=== PATIENT | male | born 1940 | race Asian ===

== ENCOUNTER 2017-06-25 07:14 | Inpatient (IN) | payer MEDICARE ==
[~2017-06-25] VITALS: Ht 170.2 cm; Wt 78.0 kg
[~2017-06-25 07:14] MED LIST: ATEN25TA PO; METF-444 PO; PRAV20TA4 PO
[2017-06-25 07:27] LABS: GLUCOSE,POINT OF CARE 304 MG/DL (70-110)
[2017-06-25 07:51] LABS: BASOPHILS % (AUTO) 1.1 % (0.0-2.0); EOSINOPHILS % (AUTO) 0.5 % (1.0-6.0); HEMATOCRIT 38.5 % (41-53); HEMOGLOBIN 12.9 g/dL (13.5-17.5); LYMPHOCYTES # (AUTO) 0.5 K/uL (1.0-4.8); LYMPHOCYTES % (AUTO) 4.8 % (22.0-44.0); MEAN CORPUSCULAR HEMOGLOBIN 30.8 pg (26.0-34.0); MEAN CORPUSCULAR HGB CONC 33.5 G/dL (31.0-37.0); MEAN CORPUSCULAR VOLUME 92 fL (80-100); MONOCYTES # (AUTO) 0.8 K/uL (0.1-1.0); MONOCYTES % (AUTO) 7.5 % (2.0-9.0); NEUTROPHILS # (AUTO) 9.1 K/uL (1.8-7.7); NEUTROPHILS % (AUTO) 86.1 % (40.0-70.0); PLATELET COUNT (AUTO) 209 K/uL (150-450); RED BLOOD CELL COUNT(AUTO) 4.18 MIL/uL (4.50-5.90); RED CELL DISTRIBUTION WIDTH 12.7 % (11.5-14.5)
[2017-06-25 08:02] LABS: ANION GAP 7 mmol/L (8-16); CALCIUM, TOTAL 8.9 mg/dL (8.8-10.5); CARBON DIOXIDE 28 mmol/L (22-29); CHLORIDE 98 mmol/L (98-107); CREATININE 2.09 mg/dL (0.60-1.30); GLOMERULAR FILTR. RATE CALC 31 mL/min (>60); GLUCOSE,RANDOM 283 mg/dL (70-110); POTASSIUM 4.4 mmol/L (3.5-5.1); SODIUM SERUM 133 mmol/L (136-145); UREA NITROGEN, BLOOD 38 mg/dL (7-18)
[2017-06-25 08:17] LABS: B-TYPE NATRIURETIC PEPTIDE 77 pg/mL (0-100)
[2017-06-25 08:27] LABS: ALANINE AMINOTRANSFERASE 31 U/L (12-78); ALBUMIN 3.1 g/dL (3.4-5.0); ALKALINE PHOSPHATASE 162 U/L (46-116); ASPARTATE AMINOTRANSFERASE 20 U/L (15-37); BILIRUBIN,TOTAL 0.8 mg/dL (0.1-1.0); CREATINE KINASE MB 0.6 ng/mL (0-5); CREATINE KINASE, TOTAL 78 U/L (39-308); TOTAL PROTEIN, SERUM 7.2 g/dL (6.4-8.2)
[2017-06-25] MEDS ORDERED: SODIUM CHLORIDE 0.9% 1,000 ML IV ONE ×2 (08:30→22:00)
[2017-06-25] MEDS ORDERED: NITROGLYCERIN 2% (1 GM=INCH) PACKET TP ONE (08:30)
[2017-06-25] MEDS ORDERED: ASPIRIN 325 MG EC TABLET PO ONE (08:30)
[2017-06-25] MEDS ORDERED: HEPARIN SODIUM 25000 UNITS/D5W 250 ML IV PRN (09:15)
[2017-06-25 09:24] LABS: APPEARANCE,URINE CLEAR (CLEAR); BILIRUBIN,URINE NEGATIVE (NEGATIVE); GLUCOSE, URINE (UA) >=1000 mg/dL (NEGATIVE); KETONES,URINE NEGATIVE (NEGATIVE); LEUKOCYTE ESTERASE ,URINE NEGATIVE (NEGATIVE); NITRATE,URINE NEGATIVE (NEGATIVE); OCCULT BLOOD,URINE SMALL (NEGATIVE); PH,URINE 6.5 (5.0-8.0); PROTEIN,URINE SEE CONFIRM (NEGATIVE); UROBILINOGEN,URINE 0.2 mg/dL (<=1.0)
[2017-06-25] MEDS ORDERED: HEPARIN SODIUM,PORCINE 5,000 UNITS/ML VIAL IVP PRN ×4 (09:30→22:30)
[2017-06-25] MEDS: ASPIRIN 81 MG EC TABLET PO SCH (09:30)
[2017-06-25] MEDS: NITROGLYCERIN 2% (1 GM=INCH) PACKET TP SCH ×3 (09:30→23:23)
[2017-06-25 09:38] LABS: BACTERIA,URINE None Seen /HPF (None Seen); SULFOSALICYLIC ACID,URINE 2+ (Negative)
[2017-06-25 09:40] LABS: SQUAMOUS EPITHELIAL CELL,UR None Seen /LPF (None Seen); WBC,URINE 0-2 /HPF (0-5)
[2017-06-25] MEDS ORDERED: 0.9% SODIUM CHLORIDE 10 ML SYRINGE IVP PRN (09:45)
[2017-06-25] MEDS ORDERED: ACETAMINOPHEN 325 MG TABLET PO PRN (09:45)
[2017-06-25] MEDS ORDERED: HEPARIN SODIUM,PORCINE 5,000 UNITS/ML VIAL IVP ONE (09:45)
[2017-06-25] MEDS: PANTOPRAZOLE SODIUM 40 MG/VIAL IVP SCH (09:45)
[2017-06-25 11:33] VITALS: BP 130/66
[2017-06-25] MEDS: ATORVASTATIN CALCIUM 40 MG TABLET PO SCH (12:29)
[2017-06-25] MEDS: METOPROLOL TARTRATE 25 MG TABLET PO SCH ×2 (12:29→20:48)
[2017-06-25] MEDS ORDERED: PNEUMOCOCCAL VACCINE POLYVALENT 0.5 ML VIAL [PPSV23] IM ONE (14:15)
[2017-06-25 16:17] VITALS: BP 102/58
[2017-06-25] MEDS ORDERED: DEXTROSE 50%-WATER 25 GM/50 ML SYRINGE IVP PRN (17:45)
[2017-06-25] MEDS: INSULIN LISPRO 100 UNITS/ML SQ PRN ×2 (17:59→20:45)
[2017-06-25 19:46] VITALS: BP 146/67
[2017-06-25] MEDS ORDERED: *CLINICAL-LEVOFLOXACIN IVPB DOSING CLINICAL ONE (22:00)
[2017-06-25 22:57] LABS: GLUCOMETER DEV NAME(LOC) 5S 2P; GLUCOSE,POINT OF CARE 361 MG/DL (70-110)
[2017-06-25 22:57] LABS: GLUCOMETER DEV NAME(LOC) 5S 2P; GLUCOSE,POINT OF CARE 259 MG/DL (70-110)
[2017-06-25] MEDS ORDERED: LEVOFLOXACIN 750 MG/D5% WATER 150 ML IV SCH (23:00)
[2017-06-25 23:07] VITALS: BP 155/62
[2017-06-26] MEDS: HEPARIN SODIUM 25000 UNITS/D5W 250 ML IV PRN ×2 (00:20→16:08)
[2017-06-26 01:57] LABS: GLUCOMETER DEV NAME(LOC) 5S 1M; GLUCOSE,POINT OF CARE 256 MG/DL (70-110)
[2017-06-26 03:59] VITALS: BP 106/53
[2017-06-26] MEDS: INSULIN LISPRO 100 UNITS/ML SQ PRN ×4 (06:07→21:12)
[2017-06-26 06:59] LABS: BASOPHILS % (AUTO) 0.3 % (0.0-2.0); EOSINOPHILS % (AUTO) 0 % (1.0-6.0); HEMATOCRIT 36.4 % (41-53); HEMOGLOBIN 12.2 g/dL (13.5-17.5); LYMPHOCYTES # (AUTO) 0.7 K/uL (1.0-4.8); LYMPHOCYTES % (AUTO) 5.8 % (22.0-44.0); MEAN CORPUSCULAR HGB CONC 33.4 G/dL (31.0-37.0); MEAN CORPUSCULAR VOLUME 93 fL (80-100); MONOCYTES # (AUTO) 1.1 K/uL (0.1-1.0); MONOCYTES % (AUTO) 8.7 % (2.0-9.0); NEUTROPHILS # (AUTO) 10.5 K/uL (1.8-7.7); PLATELET COUNT (AUTO) 196 K/uL (150-450); RED BLOOD CELL COUNT(AUTO) 3.92 MIL/uL (4.50-5.90); RED CELL DISTRIBUTION WIDTH 12.7 % (11.5-14.5)
[2017-06-26 07:01] LABS: NEUTROPHILS % (AUTO) 85.2 % (40.0-70.0)
[2017-06-26 07:18] LABS: ALBUMIN 2.6 g/dL (3.4-5.0); BILIRUBIN,TOTAL 0.8 mg/dL (0.1-1.0); CALCIUM, TOTAL 8.4 mg/dL (8.8-10.5); CREATININE 2.26 mg/dL (0.60-1.30); MAGNESIUM 2.2 mg/dL (1.80-2.40); POTASSIUM 4.9 mmol/L (3.5-5.1); TOTAL PROTEIN, SERUM 6.4 g/dL (6.4-8.2)
[2017-06-26 07:37] LABS: GLUCOMETER DEV NAME(LOC) 5S 2P; GLUCOSE,POINT OF CARE 255 MG/DL (70-110)
[2017-06-26] MEDS ORDERED: GuaiFENesin SR 600 MG ER TABLET PO SCH (09:00)
[2017-06-26] MEDS: PANTOPRAZOLE SODIUM 40 MG/VIAL IVP SCH (09:22)
[2017-06-26] MEDS: NITROGLYCERIN 2% (1 GM=INCH) PACKET TP SCH ×2 (09:22→16:05)
[2017-06-26] MEDS: ATORVASTATIN CALCIUM 40 MG TABLET PO SCH (09:23)
[2017-06-26] MEDS: ASPIRIN 81 MG EC TABLET PO SCH (09:23)
[2017-06-26] MEDS: METOPROLOL TARTRATE 25 MG TABLET PO SCH ×2 (09:23→21:00)
[2017-06-26 11:31] VITALS: BP 100/67
[2017-06-26] MEDS: ACETYLCYSTEINE 20% 200 MG/ML 4 ML ORAL SOLUTION PO SCH ×2 (14:04→21:11)
[2017-06-26] MEDS: SODIUM CHLORIDE 0.9% 1,000 ML IV SCH (14:04)
[2017-06-26 16:07] VITALS: BP 100/44
[2017-06-26 20:14] VITALS: BP 100/54
[2017-06-26 21:13] VITALS: BP_SYST 103; BP_SYST 130; BP_DIAS 51
[2017-06-26 22:32] LABS: GLUCOMETER DEV NAME(LOC) 5S 2P; GLUCOSE,POINT OF CARE 172 MG/DL (70-110)
[2017-06-26 22:32] LABS: GLUCOMETER DEV NAME(LOC) 5S 2P; GLUCOSE,POINT OF CARE 161 MG/DL (70-110)
[2017-06-27] VITALS (17 sets, daily range): BP systolic 105–177; BP diastolic 53–78
[2017-06-27] MEDS: NITROGLYCERIN 2% (1 GM=INCH) PACKET TP SCH ×4 (00:20→23:28)
[2017-06-27] MEDS: SODIUM CHLORIDE 0.9% 1,000 ML IV SCH ×2 (04:11→23:33)
[2017-06-27] MEDS: INSULIN LISPRO 100 UNITS/ML SQ PRN ×4 (06:08→20:15)
[2017-06-27 07:17] LABS: BASOPHILS % (AUTO) 0.8 % (0.0-2.0); EOSINOPHILS % (AUTO) 0.8 % (1.0-6.0); HEMATOCRIT 35.5 % (41-53); HEMOGLOBIN 12.1 g/dL (13.5-17.5); LYMPHOCYTES # (AUTO) 0.9 K/uL (1.0-4.8); LYMPHOCYTES % (AUTO) 12.1 % (22.0-44.0); MEAN CORPUSCULAR HEMOGLOBIN 31.3 pg (26.0-34.0); MEAN CORPUSCULAR VOLUME 92 fL (80-100); MONOCYTES # (AUTO) 0.9 K/uL (0.1-1.0); MONOCYTES % (AUTO) 12.3 % (2.0-9.0); NEUTROPHILS # (AUTO) 5.4 K/uL (1.8-7.7); PLATELET COUNT (AUTO) 194 K/uL (150-450); RED BLOOD CELL COUNT(AUTO) 3.86 MIL/uL (4.50-5.90); RED CELL DISTRIBUTION WIDTH 12.7 % (11.5-14.5)
[2017-06-27 07:36] LABS: ALBUMIN 2.4 g/dL (3.4-5.0); BILIRUBIN,TOTAL 0.4 mg/dL (0.1-1.0); CREATININE 2.06 mg/dL (0.60-1.30); MAGNESIUM 2.1 mg/dL (1.80-2.40); PHOSPHORUS 3.5 mg/dL (2.5-4.9)
[2017-06-27] MEDS: PANTOPRAZOLE SODIUM 40 MG/VIAL IVP SCH (08:51)
[2017-06-27] MEDS ORDERED: SODIUM BICARBONATE 150 MEQ in DEXTROSE 5%-WATER 850 ML IV ONE (09:00)
[2017-06-27] MEDS: ASPIRIN 81 MG EC TABLET PO SCH (09:00)
[2017-06-27] MEDS: METOPROLOL TARTRATE 25 MG TABLET PO SCH ×2 (09:00→15:46)
[2017-06-27] MEDS: ACETYLCYSTEINE 20% 200 MG/ML 4 ML ORAL SOLUTION PO SCH ×2 (10:48→20:12)
[2017-06-27] MEDS ORDERED: VERAPAMIL HCL 2.5 MG/ML 2 ML VIAL ONE (11:54)
[2017-06-27] MEDS ORDERED: NITROGLYCERIN 50 MG/D5% WATER 250 ML ONE (11:54)
[2017-06-27] MEDS ORDERED: LIDOCAINE HCL/PF 1% 30 ML VIAL ONE ×2 (11:54→13:56)
[2017-06-27] MEDS ORDERED: HEPARIN SODIUM,PORCINE 1,000 UNITS/ML 10 ML VIAL ONE (11:54)
[2017-06-27] MEDS ORDERED: SODIUM BICARBONATE 50 MEQ/50 ML VIAL ONE ×2 (11:55→13:56)
[2017-06-27] MEDS ORDERED: 0.9% SODIUM CHLORIDE 10 ML SYRINGE IVP ONE (11:55)
[2017-06-27] MEDS ORDERED: HEPARIN SODIUM 1000 UNITS/NS 1,000 ML ONE (11:55)
[2017-06-27] MEDS ORDERED: IOHEXOL 300 MG/ML 150 ML VIAL ONE (11:55)
[2017-06-27] MEDS ORDERED: SODIUM CHLORIDE 0.9% 500 ML IV ONE (12:57)
[2017-06-27] MEDS ORDERED: LIDOCAINE 1% 30 ML/SOD BICARB 8.4% 4 ML SQ ONE (12:58)
[2017-06-27] MEDS ORDERED: HEPARIN SODIUM 2,000 UNITS in HEPARIN SODIUM 1000 UNITS/NS 1,000 ML IARTER ONE (12:59)
[2017-06-27] MEDS ORDERED: IOHEXOL 300 MG/ML 150 ML VIAL IARTER ONE (13:02)
[2017-06-27] MEDS ORDERED: ATROPINE SULFATE 0.1 MG/ML 10 ML SYRINGE IVP ONE (13:04)
[2017-06-27] MEDS ORDERED: VERAPAMIL HCL 2.5 MG/ML 2 ML VIAL ICOR ONE (13:30)
[2017-06-27] MEDS ORDERED: NITROGLYCERIN/D5W 50 MG/250 ML IV BOTTLE ICOR ONE (13:30)
[2017-06-27] MEDS ORDERED: IOHEXOL 300 MG/ML 50 ML VIAL ONE (13:56)
[2017-06-27] MEDS: HEPARIN SODIUM 25000 UNITS/D5W 250 ML IV PRN (14:26)
[2017-06-27] MEDS: ATORVASTATIN CALCIUM 40 MG TABLET PO SCH (15:46)
[2017-06-27] MEDS ORDERED: DAPTOMYCIN 350 MG in SODIUM CHLORIDE 0.9% 50 ML IV SCH (16:00)
[2017-06-27 16:02] LABS: GLUCOMETER DEV NAME(LOC) 5N 1P; GLUCOSE,POINT OF CARE 111 MG/DL (70-110)
[2017-06-27 16:02] LABS: GLUCOMETER DEV NAME(LOC) 5N 1P; GLUCOSE,POINT OF CARE 128 MG/DL (70-110)
[2017-06-27 21:48] LABS: GLUCOMETER DEV NAME(LOC) 5S 2P; GLUCOSE,POINT OF CARE 221 MG/DL (70-110)
[2017-06-27 21:48] LABS: GLUCOMETER DEV NAME(LOC) 5S 1M; GLUCOSE,POINT OF CARE 302 MG/DL (70-110)
[2017-06-27 22:27] LABS: GLUCOMETER DEV NAME(LOC) 5N 2S; GLUCOSE,POINT OF CARE 223 MG/DL (70-110)
[2017-06-28] VITALS (7 sets, daily range): BP systolic 114–159; BP diastolic 54–89
[2017-06-28 06:08] LABS: APPEARANCE,URINE CLEAR (CLEAR); BILIRUBIN,URINE NEGATIVE (NEGATIVE); GLUCOSE, URINE (UA) >=1000 mg/dL (NEGATIVE); KETONES,URINE NEGATIVE (NEGATIVE); LEUKOCYTE ESTERASE ,URINE NEGATIVE (NEGATIVE); NITRATE,URINE NEGATIVE (NEGATIVE); OCCULT BLOOD,URINE SMALL (NEGATIVE); PROTEIN,URINE POS 1+ (NEGATIVE); UROBILINOGEN,URINE 0.2 mg/dL (<=1.0)
[2017-06-28 06:17] LABS: BACTERIA,URINE None Seen /HPF (None Seen); WBC,URINE 0-2 /HPF (0-5)
[2017-06-28] MEDS: INSULIN LISPRO 100 UNITS/ML SQ PRN ×3 (06:33→21:12)
[2017-06-28 06:56] LABS: BASOPHILS % (AUTO) 0.6 % (0.0-2.0); EOSINOPHILS % (AUTO) 0.5 % (1.0-6.0); HEMATOCRIT 35.7 % (41-53); HEMOGLOBIN 12.2 g/dL (13.5-17.5); LYMPHOCYTES # (AUTO) 0.9 K/uL (1.0-4.8); LYMPHOCYTES % (AUTO) 14.4 % (22.0-44.0); MEAN CORPUSCULAR HEMOGLOBIN 31.5 pg (26.0-34.0); MEAN CORPUSCULAR HGB CONC 34.2 G/dL (31.0-37.0); MEAN CORPUSCULAR VOLUME 92 fL (80-100); MONOCYTES # (AUTO) 0.9 K/uL (0.1-1.0); MONOCYTES % (AUTO) 13.9 % (2.0-9.0); NEUTROPHILS # (AUTO) 4.4 K/uL (1.8-7.7); NEUTROPHILS % (AUTO) 70.6 % (40.0-70.0); PLATELET COUNT (AUTO) 196 K/uL (150-450); RED BLOOD CELL COUNT(AUTO) 3.87 MIL/uL (4.50-5.90); RED CELL DISTRIBUTION WIDTH 12.4 % (11.5-14.5)
[2017-06-28] MEDS: ASPIRIN 81 MG EC TABLET PO SCH (07:22)
[2017-06-28 07:38] LABS: HEMOGLOBIN A1C 10.3 % (4.5-6.2)
[2017-06-28] MEDS: PANTOPRAZOLE SODIUM 40 MG/VIAL IVP SCH (09:16)
[2017-06-28] MEDS: NITROGLYCERIN 2% (1 GM=INCH) PACKET TP SCH ×2 (09:16→16:30)
[2017-06-28 10:12] LABS: SODIUM SERUM 139 mmol/L (136-145)
[2017-06-28 10:13] LABS: ALANINE AMINOTRANSFERASE 21 U/L (12-78); ALBUMIN 2.5 g/dL (3.4-5.0); ALKALINE PHOSPHATASE 134 U/L (46-116); ANION GAP 8 mmol/L (8-16); ASPARTATE AMINOTRANSFERASE 22 U/L (15-37); BILIRUBIN,TOTAL 0.3 mg/dL (0.1-1.0); CALCIUM, TOTAL 8.2 mg/dL (8.8-10.5); CARBON DIOXIDE 26 mmol/L (22-29); CHLORIDE 105 mmol/L (98-107); CREATINE KINASE MB 2.6 ng/mL (0-5); CREATINE KINASE, TOTAL 150 U/L (39-308); CREATININE 1.73 mg/dL (0.60-1.30); GLOMERULAR FILTR. RATE CALC 38 mL/min (>60); GLUCOSE,RANDOM 260 mg/dL (70-110); TOTAL PROTEIN, SERUM 6.1 g/dL (6.4-8.2)
[2017-06-28 10:14] LABS: CHOL/HDL RATIO 3.4 (4.2-7.3); CHOLESTEROL 169 mg/dL (131-200); FREE T4 (FREE THYROXINE) 1.05 ng/dL (0.76-1.46); HDL CHOLESTEROL 49 mg/dL (40-60); LDL CHOL (CALC.) 105 mg/dL (0-130); THYROID STIMULATING HORMONE 1.15 uIU/mL (0.36-3.74); TRIGLYCERIDES 76 mg/dL (15-150)
[2017-06-28 10:16] LABS: UREA NITROGEN, BLOOD 36 mg/dL (7-18)
[2017-06-28 10:32] LABS: FOLATE SERUM 12.9 ng/mL (5.4-)
[2017-06-28] MEDS ORDERED: SODIUM CHLORIDE 0.9% 1,000 ML IV ONE ×2 (11:07→11:30)
[2017-06-28] MEDS ORDERED: BUPIVACAINE HCL/PF 0.5% 30 ML VIAL ONE (11:51)
[2017-06-28] MEDS ORDERED: LIDOCAINE HCL/PF 1% 30 ML VIAL ONE (11:51)
[2017-06-28] MEDS: SODIUM CHLORIDE 0.9% 1,000 ML IV SCH ×2 (12:13→18:20)
[2017-06-28] MEDS ORDERED: GELATIN SPONGE,ABSORBABLE 100 MM TP ONE (12:28)
[2017-06-28] MEDS ORDERED: THROMBIN, BOVINE 20000 UNITS/VIAL POWDER TP ONE (12:28)
[2017-06-28 12:52] LABS: GLUCOMETER DEV NAME(LOC) SDS 5; GLUCOSE,POINT OF CARE 96 MG/DL (70-110)
[2017-06-28] MEDS ORDERED: FentaNYL CITRATE-PF 100 MCG/2 ML VIAL IVP PRN (13:00)
[2017-06-28 13:12] LABS: GLUCOMETER DEV NAME(LOC) 5N 2S; GLUCOSE,POINT OF CARE 254 MG/DL (70-110)
[2017-06-28 13:12] LABS: GLUCOMETER DEV NAME(LOC) 5N 2S; GLUCOSE,POINT OF CARE 99 MG/DL (70-110)
[2017-06-28] MEDS: ATORVASTATIN CALCIUM 40 MG TABLET PO SCH (13:59)
[2017-06-28] MEDS: METOPROLOL TARTRATE 25 MG TABLET PO SCH ×2 (13:59→21:05)
[2017-06-28] MEDS: ACETYLCYSTEINE 20% 200 MG/ML 4 ML ORAL SOLUTION PO SCH ×2 (13:59→21:05)
[2017-06-28] MEDS: OXYGEN THERAPY IH SCH ×2 (14:00→21:21)
[2017-06-28] MEDS: DAPTOMYCIN 350 MG in SODIUM CHLORIDE 0.9% 50 ML IV SCH (16:30)
[2017-06-28 19:44] LABS: GLUCOMETER DEV NAME(LOC) 5N 2S; GLUCOSE,POINT OF CARE 252 MG/DL (70-110)
[2017-06-29] MEDS: NITROGLYCERIN 2% (1 GM=INCH) PACKET TP SCH ×4 (00:09→23:32)
[2017-06-29 00:23] VITALS: BP 122/58
[2017-06-29] MEDS ORDERED: FentaNYL CITRATE-PF 100 MCG/2 ML VIAL IVP ONE (05:38)
[2017-06-29] MEDS ORDERED: MIDAZOLAM HCL 2 MG/2 ML VIAL IVP ONE (05:38)
[2017-06-29] MEDS ORDERED: LIDOCAINE HCL/PF 2% 5 ML VIAL IM ONE ×2 (05:39→05:42)
[2017-06-29] MEDS ORDERED: PROPOFOL 1% 20 ML VIAL IVP ONE (05:42)
[2017-06-29 05:47] VITALS: BP 142/63
[2017-06-29 06:37] LABS: BASOPHILS % (AUTO) 0.8 % (0.0-2.0); EOSINOPHILS % (AUTO) 1.5 % (1.0-6.0); HEMATOCRIT 33.1 % (41-53); HEMOGLOBIN 11.2 g/dL (13.5-17.5); LYMPHOCYTES # (AUTO) 1.2 K/uL (1.0-4.8); LYMPHOCYTES % (AUTO) 24.4 % (22.0-44.0); MEAN CORPUSCULAR HEMOGLOBIN 31.1 pg (26.0-34.0); MEAN CORPUSCULAR HGB CONC 33.8 G/dL (31.0-37.0); MEAN CORPUSCULAR VOLUME 92 fL (80-100); MONOCYTES # (AUTO) 0.5 K/uL (0.1-1.0); MONOCYTES % (AUTO) 10.9 % (2.0-9.0); NEUTROPHILS # (AUTO) 3.1 K/uL (1.8-7.7); NEUTROPHILS % (AUTO) 62.4 % (40.0-70.0); PLATELET COUNT (AUTO) 196 K/uL (150-450); RED CELL DISTRIBUTION WIDTH 12.6 % (11.5-14.5)
[2017-06-29] MEDS: SODIUM CHLORIDE 0.9% 1,000 ML IV SCH ×2 (06:39→20:06)
[2017-06-29 07:17] VITALS: BP_SYST 138; BP_SYST 156; BP_DIAS 88; BP_DIAS 98
[2017-06-29 07:25] LABS: ALBUMIN 2.4 g/dL (3.4-5.0); BILIRUBIN,TOTAL 0.3 mg/dL (0.1-1.0); CALCIUM, TOTAL 8.1 mg/dL (8.8-10.5); CREATININE 1.71 mg/dL (0.60-1.30); MAGNESIUM 1.8 mg/dL (1.80-2.40); POTASSIUM 3.9 mmol/L (3.5-5.1); TOTAL PROTEIN, SERUM 5.8 g/dL (6.4-8.2)
[2017-06-29 07:37] LABS: GLUCOMETER DEV NAME(LOC) 5N 1P; GLUCOSE,POINT OF CARE 132 MG/DL (70-110)
[2017-06-29 08:42] LABS: GLUCOMETER DEV NAME(LOC) 5N 2S; GLUCOSE,POINT OF CARE 239 MG/DL (70-110)
[2017-06-29] MEDS: OXYGEN THERAPY IH SCH ×2 (09:25→20:06)
[2017-06-29] MEDS: ASPIRIN 81 MG EC TABLET PO SCH (09:25)
[2017-06-29] MEDS: ATORVASTATIN CALCIUM 40 MG TABLET PO SCH (09:25)
[2017-06-29] MEDS: PANTOPRAZOLE SODIUM 40 MG/VIAL IVP SCH (09:25)
[2017-06-29] MEDS: METOPROLOL TARTRATE 25 MG TABLET PO SCH ×2 (09:25→20:05)
[2017-06-29 11:19] VITALS: BP 143/75
[2017-06-29] MEDS: NICOTINE 14 MG/24 HOUR PATCH TD SCH (12:00)
[2017-06-29] MEDS: INSULIN LISPRO 100 UNITS/ML SQ PRN ×2 (12:13→20:16)
[2017-06-29 15:33] LABS: GLUCOMETER DEV NAME(LOC) 5N 1P; GLUCOSE,POINT OF CARE 195 MG/DL (70-110)
[2017-06-29 15:42] VITALS: BP 132/76
[2017-06-29] MEDS: DAPTOMYCIN 350 MG in SODIUM CHLORIDE 0.9% 50 ML IV SCH (17:10)
[2017-06-29 19:32] LABS: GLUCOMETER DEV NAME(LOC) 5N 1P; GLUCOSE,POINT OF CARE 271 MG/DL (70-110)
[2017-06-29 19:55] VITALS: BP 162/67
[2017-06-30] VITALS (8 sets, daily range): BP systolic 141–187; BP diastolic 56–77
[2017-06-30 04:37] LABS: GLUCOMETER DEV NAME(LOC) 5N 1P; GLUCOSE,POINT OF CARE 233 MG/DL (70-110)
[2017-06-30 07:46] LABS: BASOPHILS % (AUTO) 0.9 % (0.0-2.0); HEMOGLOBIN 11.9 g/dL (13.5-17.5); LYMPHOCYTES # (AUTO) 1.3 K/uL (1.0-4.8); LYMPHOCYTES % (AUTO) 25.2 % (22.0-44.0); MEAN CORPUSCULAR HEMOGLOBIN 31.3 pg (26.0-34.0); MEAN CORPUSCULAR HGB CONC 34.2 G/dL (31.0-37.0); MEAN CORPUSCULAR VOLUME 92 fL (80-100); MONOCYTES # (AUTO) 0.7 K/uL (0.1-1.0); MONOCYTES % (AUTO) 14.2 % (2.0-9.0); NEUTROPHILS % (AUTO) 56.7 % (40.0-70.0); PLATELET COUNT (AUTO) 202 K/uL (150-450); RED BLOOD CELL COUNT(AUTO) 3.81 MIL/uL (4.50-5.90); RED CELL DISTRIBUTION WIDTH 12.6 % (11.5-14.5)
[2017-06-30] MEDS: OXYGEN THERAPY IH SCH ×2 (08:00→21:08)
[2017-06-30] MEDS: PANTOPRAZOLE SODIUM 40 MG/VIAL IVP SCH (08:16)
[2017-06-30] MEDS: NITROGLYCERIN 2% (1 GM=INCH) PACKET TP SCH ×3 (08:17→23:19)
[2017-06-30] MEDS: ASPIRIN 81 MG EC TABLET PO SCH (08:17)
[2017-06-30] MEDS: METOPROLOL TARTRATE 25 MG TABLET PO SCH ×3 (08:17→21:27)
[2017-06-30] MEDS: ATORVASTATIN CALCIUM 40 MG TABLET PO SCH (08:17)
[2017-06-30] MEDS: NICOTINE 14 MG/24 HOUR PATCH TD SCH (08:27)
[2017-06-30 08:28] LABS: ALANINE AMINOTRANSFERASE 25 U/L (12-78); ALBUMIN 2.4 g/dL (3.4-5.0); ALKALINE PHOSPHATASE 135 U/L (46-116); ASPARTATE AMINOTRANSFERASE 23 U/L (15-37); BILIRUBIN,TOTAL 0.4 mg/dL (0.1-1.0); CALCIUM, TOTAL 8.2 mg/dL (8.8-10.5); CHLORIDE 107 mmol/L (98-107); CREATINE KINASE MB 1.6 ng/mL (0-5); CREATINE KINASE, TOTAL 95 U/L (39-308); CREATININE 1.46 mg/dL (0.60-1.30); GLOMERULAR FILTR. RATE CALC 47 mL/min (>60); GLUCOSE,RANDOM 100 mg/dL (70-110); POTASSIUM 3.7 mmol/L (3.5-5.1); SODIUM SERUM 138 mmol/L (136-145); TOTAL PROTEIN, SERUM 6.2 g/dL (6.4-8.2); UREA NITROGEN, BLOOD 20 mg/dL (7-18)
[2017-06-30 08:33] LABS: ANION GAP 7 mmol/L (8-16); CARBON DIOXIDE 24 mmol/L (22-29)
[2017-06-30] MEDS ORDERED: ASPI-1182 PO (11:31)
[2017-06-30] MEDS ORDERED: ATOR40TA28 PO (11:32)
[2017-06-30] MEDS ORDERED: DAPT500V2 IV (11:34)
[2017-06-30] MEDS: INSULIN LISPRO 100 UNITS/ML SQ PRN ×3 (12:01→20:23)
[2017-06-30] MEDS ORDERED: INSLAN SQ (13:47)
[2017-06-30] MEDS ORDERED: METO25 PO (13:49)
[2017-06-30] MEDS ORDERED: NICO-703 TD (13:50)
[2017-06-30] MEDS ORDERED: NTP TD (13:51)
[2017-06-30] MEDS ORDERED: PANT40I IV (13:53)
[2017-06-30] MEDS ORDERED: DEXT50DI6 IV (13:55)
[2017-06-30] MEDS ORDERED: INSU100V SQ (13:56)
[2017-06-30] MEDS ORDERED: DAPTOMYCIN IV SCH (16:00)
[2017-06-30] MEDS ORDERED: SODIUM CHLORIDE 0.9% IV SCH (16:00)
[2017-06-30 16:38] LABS: GLUCOMETER DEV NAME(LOC) 5N 1P; GLUCOSE,POINT OF CARE 202 MG/DL (70-110)
[2017-06-30 16:38] LABS: GLUCOMETER DEV NAME(LOC) 5N 1P; GLUCOSE,POINT OF CARE 101 MG/DL (70-110)
[2017-06-30] MEDS ORDERED: SODIUM CHLORIDE 0.9% 1,000 ML IV ONE (17:59)
[2017-06-30 20:23] LABS: GLUCOMETER DEV NAME(LOC) 5N 2S; GLUCOSE,POINT OF CARE 264 MG/DL (70-110)
[2017-06-30] MEDS ORDERED: HydrALAZINE HCL 25 MG TABLET PO PRN (20:45)
[2017-06-30] MEDS ORDERED: ROSUVASTATIN CALCIUM 10 MG TABLET PO SCH (21:00)
[2017-06-30] MEDS ORDERED: INSULIN GLARGINE,HUM.REC.ANLOG 100 UNITS/ML SQ SCH (21:00)
[2017-06-30] MEDS: LOSARTAN POTASSIUM 25 MG TABLET PO SCH (21:05)
[2017-07-01 00:43] VITALS: BP 137/67
[2017-07-01 03:13] VITALS: BP 141/76
[2017-07-01] MEDS: METOPROLOL TARTRATE 25 MG TABLET PO SCH ×3 (03:15→15:30)
[2017-07-01 04:17] LABS: GLUCOMETER DEV NAME(LOC) 5N 1P; GLUCOSE,POINT OF CARE 182 MG/DL (70-110)
[2017-07-01] MEDS: INSULIN LISPRO 100 UNITS/ML SQ PRN ×2 (05:23→12:10)
[2017-07-01 05:58] LABS: BASOPHILS % (AUTO) 0.6 % (0.0-2.0); EOSINOPHILS % (AUTO) 3.4 % (1.0-6.0); HEMATOCRIT 37.4 % (41-53); LYMPHOCYTES # (AUTO) 1.1 K/uL (1.0-4.8); LYMPHOCYTES % (AUTO) 19.8 % (22.0-44.0); MEAN CORPUSCULAR HEMOGLOBIN 32.1 pg (26.0-34.0); MEAN CORPUSCULAR HGB CONC 34.9 G/dL (31.0-37.0); MEAN CORPUSCULAR VOLUME 92 fL (80-100); MONOCYTES # (AUTO) 0.7 K/uL (0.1-1.0); MONOCYTES % (AUTO) 13.3 % (2.0-9.0); NEUTROPHILS # (AUTO) 3.5 K/uL (1.8-7.7); NEUTROPHILS % (AUTO) 62.9 % (40.0-70.0); PLATELET COUNT (AUTO) 226 K/uL (150-450); RED BLOOD CELL COUNT(AUTO) 4.06 MIL/uL (4.50-5.90); RED CELL DISTRIBUTION WIDTH 12.6 % (11.5-14.5)
[2017-07-01 06:43] LABS: ALBUMIN 2.5 g/dL (3.4-5.0); BILIRUBIN,TOTAL 0.3 mg/dL (0.1-1.0); CALCIUM, TOTAL 8.4 mg/dL (8.8-10.5); CREATININE 1.7 mg/dL (0.60-1.30); MAGNESIUM 1.8 mg/dL (1.80-2.40); PHOSPHORUS 3.6 mg/dL (2.5-4.9); POTASSIUM 4.2 mmol/L (3.5-5.1); TOTAL PROTEIN, SERUM 6.4 g/dL (6.4-8.2)
[2017-07-01 07:33] VITALS: BP 158/75
[2017-07-01 09:27] LABS: GLUCOMETER DEV NAME(LOC) 5N 1P; GLUCOSE,POINT OF CARE 301 MG/DL (70-110)
[2017-07-01] MEDS: OXYGEN THERAPY IH SCH (09:35)
[2017-07-01] MEDS: PANTOPRAZOLE SODIUM 40 MG/VIAL IVP SCH (09:35)
[2017-07-01] MEDS: LOSARTAN POTASSIUM 25 MG TABLET PO SCH (09:35)
[2017-07-01] MEDS: ATORVASTATIN CALCIUM 40 MG TABLET PO SCH (09:35)
[2017-07-01] MEDS: ASPIRIN 81 MG EC TABLET PO SCH (09:35)
[2017-07-01] MEDS: NICOTINE 14 MG/24 HOUR PATCH TD SCH (09:35)
[2017-07-01] MEDS: NITROGLYCERIN 2% (1 GM=INCH) PACKET TP SCH (09:35)
[2017-07-01 11:10] VITALS: BP 141/68
[2017-07-01] MEDS ORDERED: LOSA25TA21 PO (12:39)
[2017-07-01 15:42] VITALS: BP 154/73
[2017-07-02 20:28] LABS: GLUCOMETER DEV NAME(LOC) 5N 2S; GLUCOSE,POINT OF CARE 268 MG/DL (70-110)
== END 2017-07-01 15:55 | disposition short-term general hospital (02) | DRG 255 ==
LOC: EDUNIT# 07:14 → EMS 07:15 → 5S 09:55
PROVIDERS: ADMIT Internal Medicine; ATTEND Internal Medicine Geriatric Medicine
PROC: 4A023N7 Measurement of Cardiac Sampling and Pressure, Left Heart, Percutaneous Approach (ICD-10-PCS; 2017-06-27)
PROC: B2111ZZ Fluoroscopy of Multiple Coronary Arteries using Low Osmolar Contrast (ICD-10-PCS; 2017-06-27)
PROC: B2151ZZ Fluoroscopy of Left Heart using Low Osmolar Contrast (ICD-10-PCS; 2017-06-27)
PROC: 0Y6Q0Z3 Detachment at Left 1st Toe, Low, Open Approach (ICD-10-PCS; principal; 2017-06-28 12:30)
DX: I21.4 Non-ST elevation (NSTEMI) myocardial infarction (principal); I50.43 Acute on chronic combined systolic (congestive) and diastolic (congestive) heart failure; N18.4 Chronic kidney disease, stage 4 (severe); N17.9 Acute kidney failure, unspecified; R78.81 Bacteremia; M86.8X8 Other osteomyelitis, other site; E11.22 Type 2 diabetes mellitus with diabetic chronic kidney disease; E11.52 Type 2 diabetes mellitus with diabetic peripheral angiopathy with gangrene; I13.0 Hypertensive heart and chronic kidney disease with heart failure and stage 1 through stage 4 chronic kidney disease, or unspecified chronic kidney disease; D64.9 Anemia, unspecified; L03.032 Cellulitis of left toe; E11.65 Type 2 diabetes mellitus with hyperglycemia; E78.00 Pure hypercholesterolemia, unspecified; B95.1 Streptococcus, group B, as the cause of diseases classified elsewhere; E11.69 Type 2 diabetes mellitus with other specified complication; E78.5 Hyperlipidemia, unspecified; R26.2 Difficulty in walking, not elsewhere classified; I25.10 Atherosclerotic heart disease of native coronary artery without angina pectoris; F17.200 Nicotine dependence, unspecified, uncomplicated; Z91.19 Patient's noncompliance with other medical treatment and regimen; Z90.49 Acquired absence of other specified parts of digestive tract; Z88.0 Allergy status to penicillin; Z79.84 Long term (current) use of oral hypoglycemic drugs; Z79.899 Other long term (current) drug therapy; Z85.46 Personal history of malignant neoplasm of prostate; Z92.3 Personal history of irradiation; Z82.49 Family history of ischemic heart disease and other diseases of the circulatory system; Z28.21 Immunization not carried out because of patient refusal
CPT/HCPCS: 70450; 76770; 82306; 82607; 82746; 83036; 83605; 83735; 84100; 84439; 84443; 87015; 87040; 87070; 87101; 87147; 87205; 87206; 88305; 88311; 90471; 93005; 93306; 93880; 93925; 96361; 96374; 96375; 99291; C9113; J0461; J0690; J0878; J1644; J1815; J1956; J2250; J2704; J3010; J3490; J7030; J7050; J7060; Q9967

== ENCOUNTER → 2017-10-13 | Outpatient (CLI) | payer MEDICARE ==
[~2017-10-13] MED LIST changes: +ASPI-1182 PO; -ATEN25TA PO; +ATOR40TA28 PO; +DAPT500V2 IV; +DEXT50DI6 IV; +INSLAN SQ; +INSU100V SQ; +LOSA25TA21 PO; -METF-444 PO; +METO25 PO; +NICO-703 TD; +NTP TD; +PANT40I IV; -PRAV20TA4 PO
== END | disposition home or self-care (01) ==
LOC: RADPV 13:56
PROVIDERS: ATTEND Podiatrist Foot & Ankle Surgery
DX: R60.0 Localized edema (principal); I10 Essential (primary) hypertension; E78.00 Pure hypercholesterolemia, unspecified; E11.9 Type 2 diabetes mellitus without complications

== ENCOUNTER → 2019-02-19 | Outpatient (CLI) | payer MEDICARE ==
[~2019-02-19] MED LIST changes: +AMLO2.5T4 PO; +AUD NEB; +BISA10SU61 PR; +CILO100T PO; +CLOP75TA3 PO; -DAPT500V2 IV; +IPRA3AMP23 NEB; -LOSA25TA21 PO; +METO25XL PO; +MOM30 PO; +MULT-1239 PO; -NICO-703 TD; -NTP TD; +ONDA-104 PO; +PANT20TA12 PO; -PANT40I IV; +TAMS-1 PO; +VANC750P10 IVPB; +ZOLP5 PO; +[UNRECOGNIZED DRUG - CODE] PO
== END | disposition home or self-care (01) ==
LOC: LABPV 10:48
PROVIDERS: ATTEND Legal Medicine
DX: I70.0 Atherosclerosis of aorta (principal); J18.9 Pneumonia, unspecified organism